=== PATIENT | male | born 1940 | race Caucasian/White ===

== ENCOUNTER 2020-08-10 18:28 | Inpatient (IN) | payer MEDICARE ==
[2020-08-10] MEDS ORDERED: NA CHLORIDE 0.9% 500 ML ONE (20:42)
[2020-08-10 20:45] LABS: Absolute Lymphocytes (CBC) 1.1 K/uL (0.7-4.9); Basophils % 0.6 % (0-1.3); Hematocrit 38.8 % (39.6-49.0); Lymphocytes % 8.6 % (15.3-44.8)
[2020-08-10 21:11] LABS: Bilirubin Direct 0.1 mg/dL (0-0.2); Bilirubin Total 0.4 mg/dL (0.2-1.0); Potassium 4.2 mmol/L (3.5-5.1)
[2020-08-10 23:24] LABS: Urine Blood Trace-intact (Negative); Urine Glucose Negative (Negative); Urine Protein Negative (Negative)
--- NOTE | 2020-08-10 23:24 | EDPHYS ---
Physician Documentation [facility] Name: Abiel Sanchez Age: 80 yrs Sex: Male : 1940 Arrival Date: 08/10/2020 Time: 18:32 Bed 17 Private MD: ED Physician Jimmy Peña HPI: 08/10 20:22 This 80 yrs old Male presents to ER via Ambulatory with complaints of mh7 Constipation. 20:22 The patient presents with Constipation. Onset: The symptoms/episode began/occurred 5 mh7 day(s) ago. The symptoms do not radiate. Associated signs and symptoms: Pertinent positives: constipation, Pertinent negatives: nausea, vomiting, and diarrhea, nausea and vomiting, anorexia, blood in stools, chest pain, diarrhea, dysuria, fever, headache, hematuria, nausea, palpitations, shortness of breath, testicular pain, vomiting, vomiting blood. The symptoms are described as constant. Modifying factors: The symptoms are alleviated by nothing, the symptoms are aggravated by nothing. Severity of pain: At its worst the pain was No Pain, in the emergency department the pain is unchanged. Historical: - Allergies: 19:06 No Known Allergies; em - PMHx: 19:06 Hypertension; cardiac arrythymias; em - PSHx: 19:06 "monitor near heart"; Hernia repair; em 19:07 bladder stents; em - Immunization history:: Adult Immunizations up to date. - Social history:: Smoking status: Patient denies any tobacco usage or history of. ROS: 20:22 Constitutional: Negative for fever, chills, and weight loss, Eyes: Negative for injury, mh7 pain, redness, and discharge, ENT: Negative for injury, pain, and discharge, Neck: Negative for injury, pain, and swelling, Cardiovascular: Negative for chest pain, palpitations, and edema, Respiratory: Negative for shortness of breath, cough, wheezing, and pleuritic chest pain, Back: Negative for injury and pain, : Negative for injury, bleeding, discharge, and swelling, MS/Extremity: Negative for injury and deformity, Skin: Negative for injury, rash, and discoloration, Neuro: Negative for headache, weakness, numbness, tingling, and seizure, Psych: Negative for depression, anxiety, suicide ideation, homicidal ideation, and hallucinations, Allergy/Immunology: Negative for hives, rash, and allergies, Endocrine: Negative for neck swelling, polydipsia, polyuria, polyphagia, and marked weight changes, Hematologic/Lymphatic: Negative for swollen nodes, abnormal bleeding, and unusual bruising. Exam: 20:22 Constitutional: This is a well developed, well nourished patient who is awake, alert, mh7 and in no acute distress. Head/Face: Normocephalic, atraumatic. Eyes: Pupils equal round and reactive to light, extra-ocular motions intact. Lids and lashes normal. Conjunctiva and sclera are non-icteric and not injected. Cornea within normal limits. Periorbital areas with no swelling, redness, or edema. Neck: Trachea midline, no thyromegaly or masses palpated, and no cervical lymphadenopathy. Supple, full range of motion without nuchal rigidity, or vertebral point tenderness. No Meningismus. Chest/axilla: Normal chest wall appearance and motion. Nontender with no deformity. No lesions are appreciated. Cardiovascular: Regular rate and rhythm with a normal S1 and S2. No gallops, murmurs, or rubs. Normal PMI, no JVD. No pulse deficits. Respiratory: Lungs have equal breath sounds bilaterally, clear to auscultation and percussion. No rales, rhonchi or wheezes noted. No increased work of breathing, no retractions or nasal flaring. 20:22 Back: No spinal tenderness. No costovertebral tenderness. Full range of motion. Skin: Warm, dry with normal turgor. Normal color with no rashes, no lesions, and no evidence of cellulitis. MS/ Extremity: Pulses equal, no cyanosis. Neurovascular intact. Full, normal range of motion. Neuro: Awake and alert, GCS 15, oriented to person, place, time, and situation. Cranial nerves II-XII grossly intact. Motor strength 5/5 in all extremities. Sensory grossly intact. Cerebellar exam normal. Normal gait. Psych: Awake, alert, with orientation to person, place and time. Behavior, mood, and affect are within normal limits. 20:22 Abdomen/GI: Inspection: obese Bowel sounds: normal, in all quadrants, Palpation: abdomen is soft and non-tender, in all quadrants, mass, is not appreciated, rebound tenderness, is not appreciated, voluntary guarding, is not appreciated, involuntary guarding, is not appreciated, no appreciated organomegaly, Indicators: McBurney's point is not tender, Tejada's sign is negative, Rovsing's sign is negative, Obturator sign is negative, Psoas sign is negative, Liver: no appreciated palpable abnormalities, Hernia: noted in the paraumbilical area, incarceration, is not appreciated, tenderness, is not appreciated. 20:22 Abdomen/GI: Rectal exam: Prostate: normal, rectal tone normal, Stool: brown, guaiac mh7 negative, hemorrhoid(s), are not appreciated, mass, is not appreciated, swelling, is not appreciated, tenderness, is not appreciated, fecal impaction, that is mild. Vital Signs: 19:00 BP 184 / 81; Pulse 103; Resp 20; Temp 98.0(O); Pulse Ox 98% on R/A; Weight 108.86 kg; em Height 6 ft. 3 in. (190.50 cm); Pain 0/10; 21:34 BP 150 / 68; Pulse 72; Resp 18; Pulse Ox 98% on R/A; ea 22:39 BP 156 / 73; Pulse 72; Resp 18; Pulse Ox 99% on R/A; ea 23:08 BP 166 / 74; Pulse 70; Resp 18; Pulse Ox 98% ; ea 08/11 01:30 BP 168 / 82; Pulse 80; Resp 18; Temp 98; Pulse Ox 98% ; ea 08/10 19:00 Body Mass Index 30.00 (108.86 kg, 190.50 cm) em MDM: 08/10 23:20 Differential diagnosis: bowel obstruction, Ureterolithiasis, urinary tract infection, mh7 Constipation. Data reviewed: vital signs, nurses notes, lab test result(s), CBC, electrolytes, urinalysis, radiologic studies, CT scan. Data interpreted: Pulse oximetry: on room air is 98 %. Interpretation: normal. Counseling: I had a detailed discussion with the patient and/or guardian regarding: the historical points, exam findings, and any diagnostic results supporting the discharge/admit diagnosis, the presence of at least one elevated blood pressure reading (>120/80) during this emergency department visit, lab results, radiology results, the need for further work-up and treatment in the hospital. Response to treatment: the patient's symptoms have mildly improved after treatment. Physician consultation: Tam Do MD regarding patient's condition, and will see patient in inpatient room, would like admission per Dr. Jordan Simon MD. 23:23 Patient medically screened. [facility] 08/10 20:01 Order name: Basic Metabolic Panel; Complete Time: 22:23 [facility] 08/10 20:01 Order name: CBC with Diff; Complete Time: 21:10 [facility] 08/10 20:01 Order name: Hepatic Function; Complete Time: 22:23 [facility] 08/10 20:01 Order name: Lipase; Complete Time: 22:23 [facility] 08/10 23:24 Order name: Urine Dipstick-Ancillary [facility] 08/10 20:01 Order name: IV Saline Lock; Complete Time: 21:01 [facility] 08/10 20:01 Order name: Labs collected and sent; Complete Time: 21:01 [facility] 08/10 20:02 Order name: CT Abd/Pelvis - PO and IV Contrast [facility] 08/11 00:23 Order name: CONS Physician Consult [facility] 08/11 00:52 Order name: SARS-COV-[address] [facility] 08/10 20:02 Order name: Urine Dipstick-Ancillary (obtain specimen); Complete Time: 23:38 7 Administered Medications: 20:38 Drug: NS 0.9% 500 ml Route: IV; Rate: bolus; Site: right antecubital; vg1 23:37 Follow up: Response: No adverse reaction; IV Status: Completed infusion; IV Intake: ea 500ml 23:35 Drug: LevaQUIN (levofloxacin) 500 mg Volume: 100 ml; Route: IVPB; Infused Over: 60 ea mins; Site: right antecubital; 23:37 Follow up: IV Status: Completed infusion ea 23:35 Drug: Flagyl (metroNIDAZOLE) 500 mg Volume: 100 ml; Route: IVPB; Rate: 200 ml/hr; ea Infused Over: 30 mins; Site: right antecubital; 23:37 Follow up: IV Status: Completed infusion ea Disposition: 08/10/20 23:23 Hospitalization ordered by Jordan Simon for Inpatient Admission. Preliminary diagnosis are Constipation, Stercoral Colitis. - Bed requested for Telemetry/MedSurg (Inpatient). - Status is Inpatient Admission. ea - Condition is Stable. - Problem is new. - Symptoms have improved. Signatures: Dispatcher [employer] EDMI Kumar Veras, RN RN Magalys Askew, RN RN Carolyn Christine, RN RN vg1 Jimmy Peña MD MD 7 David Quintanilla tt3 Corrections: (The following items were deleted from the chart) 08/11 00:01 08/10 23:50 CORONAVIRUS+.LALOZ ordered. [facility] 08/11 01:24 08/10 23:23 Hospitalization Ordered by Jordan Simon MD for Inpatient Admission. tt3 Preliminary diagnosis is Constipation; Stercoral Colitis. Bed requested for Telemetry/MedSurg (Inpatient). Status is Inpatient Admission. Condition is Stable. Problem is new. Symptoms have improved. 7 08/11 01:40 01:24 08/10/2020 23:23 Hospitalization Ordered by Jordan Simon MD for Inpatient ea Admission. Preliminary diagnosis is Constipation; Stercoral Colitis. Bed requested for Telemetry/MedSurg (Inpatient). Status is Inpatient Admission. Condition is Stable. Problem is new. Symptoms have improved. tt3
--- NOTE | 2020-08-10 23:24 | ER ---
Nurse's Notes [facility] Name: Abiel Sanchez Age: 80 yrs Sex: Male : 1940 Arrival Date: 08/10/2020 Time: 18:32 Bed 17 Private MD: Diagnosis: Constipation;Stercoral Colitis Presentation: 08/10 19:00 Chief complaint: Patient states: constipation for 4-5 days, has tried prune juice, em mineral oil, and fleet enema with not relief, denies N/V, fever or pain. Coronavirus screen: Client denies travel out of the [place] in the last 14 days. Ebola Screen: Patient negative for fever greater than or equal to 101.5 degrees Fahrenheit, and additional compatible Ebola Virus Disease symptoms Patient denies exposure to infectious person. Patient denies travel to an Ebola-affected area in the 21 days before illness onset. No symptoms or risks identified at this time. Initial Sepsis Screen: Does the patient meet any 2 criteria? HR > 90 bpm. No. Patient's initial sepsis screen is negative. Does the patient have a suspected source of infection? No. Patient's initial sepsis screen is negative. Risk Assessment: Do you want to hurt yourself or someone else? Patient reports no desire to harm self or others. Onset of symptoms was August 10, 2020. 19:00 Method Of Arrival: Ambulatory em 19:00 Acuity: BLACK 3 em Historical: - Allergies: 19:06 No Known Allergies; em - PMHx: 19:06 Hypertension; cardiac arrythymias; em - PSHx: 19:06 "monitor near heart"; Hernia repair; em 19:07 bladder stents; em - Immunization history:: Adult Immunizations up to date. - Social history:: Smoking status: Patient denies any tobacco usage or history of. Screenin:49 Abuse screen: Denies threats or abuse. Nutritional screening: No deficits noted. ea Tuberculosis screening: No symptoms or risk factors identified. Fall Risk None identified. Assessment: 20:00 General: Appears in no apparent distress. Behavior is calm, cooperative, appropriate ea for age. Pain: Complains of pain in paraumbilical area. Neuro: Level of Consciousness is awake, alert, obeys commands, Oriented to person, place, time. Cardiovascular: Patient's skin is warm and dry. Respiratory: Airway is patent Respiratory effort is even, unlabored, Respiratory pattern is regular, symmetrical. GI: Abdomen is round. Derm: Skin is pink, warm \\T\\ dry. 22:38 Reassessment: Patient and/or family updated on plan of care and expected duration. Pain ea level reassessed. Patient is alert, oriented x 3, equal unlabored respirations, skin warm/dry/pink. 08/11 01:38 Reassessment: Patient and/or family updated on plan of care and expected duration. Pain ea level reassessed. Patient is alert, oriented x 3, equal unlabored respirations, skin warm/dry/pink. Report given to receiving nurse on second floor. Pt left ED via wheelchair, tolerating well. No s/s of pain or discomfort noted at this time. Vital Signs: 08/10 19:00 BP 184 / 81; Pulse 103; Resp 20; Temp 98.0(O); Pulse Ox 98% on R/A; Weight 108.86 kg; em Height 6 ft. 3 in. (190.50 cm); Pain 0/10; 21:34 BP 150 / 68; Pulse 72; Resp 18; Pulse Ox 98% on R/A; ea 22:39 BP 156 / 73; Pulse 72; Resp 18; Pulse Ox 99% on R/A; ea 23:08 BP 166 / 74; Pulse 70; Resp 18; Pulse Ox 98% ; ea 08/11 01:30 BP 168 / 82; Pulse 80; Resp 18; Temp 98; Pulse Ox 98% ; ea 08/10 19:00 Body Mass Index 30.00 (108.86 kg, 190.50 cm) ED Course: 08/10 18:32 Patient arrived in ED. mr 19:02 Triage completed. em 19:06 Arm band placed on. em 19:38 Magalys Mullins, JHONATHAN is Primary Nurse. ea 19:44 Jimmy Peña MD is Attending Physician. [facility] 19:50 Patient has correct armband on for positive identification. Bed in low position. Call ea light in reach. Side rails up X 1. 20:16 Oral contrast given. sj 20:37 Initial lab(s) drawn, by me, sent to lab. Inserted saline lock: 20 gauge in right vg1 antecubital area, using aseptic technique. Blood collected. 22:21 CT Abd/Pelvis - PO and IV Contrast In Process Unspecified. EDMO 23:22 Jordan Simon MD is Hospitalizing Provider. [facility] 23:48 No provider procedures requiring assistance completed. Patient admitted, IV remains in ea place. Administered Medications: 20:38 Drug: NS 0.9% 500 ml Route: IV; Rate: bolus; Site: right antecubital; vg1 23:37 Follow up: Response: No adverse reaction; IV Status: Completed infusion; IV Intake: ea 500ml 23:35 Drug: LevaQUIN (levofloxacin) 500 mg Volume: 100 ml; Route: IVPB; Infused Over: 60 ea mins; Site: right antecubital; 23:37 Follow up: IV Status: Completed infusion ea 23:35 Drug: Flagyl (metroNIDAZOLE) 500 mg Volume: 100 ml; Route: IVPB; Rate: 200 ml/hr; ea Infused Over: 30 mins; Site: right antecubital; 23:37 Follow up: IV Status: Completed infusion ea Intake: 23:37 IV: 500ml; Total: 500ml. ea Outcome: 23:23 Decision to Hospitalize by Provider. [facility] 08/11 01:38 Admitted to Med/surg accompanied by tech, room 228, with chart, Report called to ea Receiving nurse Condition: stable Instructed on the need for admit, Demonstrated understanding of instructions. 01:40 Patient left the ED. ea Signatures: Dispatcher [employer] [facility] Beatriz Ziegler, Kumar Hair, RN Magalys Srinivasan, RN Carolyn Barney ea RN JHONATHAN 1 Jimmy Peña MD MD [facility]
[2020-08-10] MEDS ORDERED: METRONIDAZOLE 500mg IVPB 500 MG/100 ML BAG IV ONE (23:44)
[2020-08-10] MEDS ORDERED: Levofloxacin500mg IV 500 MG/100 ML BAG IV ONE (23:44)
--- NOTE | 2020-08-11 00:40 | P.HP ---
Certification for Inpatient Patient admitted to: Observation With expected LOS: <2 Midnights Patient will require the following post-hospital care: None Practitioner: I am a practitioner with admitting privileges, knowledge of patient current condition, hospital course, and medical plan of care. Services: Services provided to patient in accordance with Admission requirements found in Title 42 Section 412.3 of the Code of Federal Regulations Patient History Date of Service: 08/11/20 Reason for admission: constipation History of Present Illness: Mr. Sanchez is an 80 yo M with HTN, cardiac arrhythmia, BPH, LAURENCE on CPAP here today for constipation. He says yesterday morning he had his last BM. This morning he used prune juice, mineral oil, and a fleet enema and was not able to have a bowel movement. He reports abdominal discomfort. Denies pain, cramps, fever, nausea and vomiting. CT scan shows stercoral colitis. WBC 12.2, GFR 57. Urine dipstick trace blood, leukocyte esterase. - Past Medical/Surgical History Diabetic: No -: HTN -: LAURENCE on CPAP -: BPH -: arrhythmia -: retinal detachment -: bladder stones -: fractured back 2019 -: thoracentesis for fluid drainage -: Dupuytren's contracture -: umbilical hernia repair -: rectal fistulectomy Psychosocial/ Personal History: lives in [facility], here for vacation in [place] - Family History Mother -: Heart disease, Hypertension Father -: Cancer - Social History Smoking Status: Former smoker Alcohol use: No CD- Drugs: No Caffeine use: Yes Place of Residence: Home Review of Systems General: Unremarkable Eyes: Unremarkable ENT: Unremarkable Respiratory: Unremarkable Cardiovascular: Unremarkable Gastrointestinal: Constipation, As per HPI Genitourinary: Unremarkable Musculoskeletal: Unremarkable Integumentary: Unremarkable Neurological: Unremarkable Lymphatics: Unremarkable Physical Examination - Physical Exam General: Alert, In no apparent distress, Oriented x3, Cooperative HEENT: Atraumatic, Normocephalic, PERRLA, Mucous membr. moist/pink, EOMI, Sclerae nonicteric Neck: Supple, 2+ carotid pulse no bruit, JVD not distended, No Thyromegaly, No LAD Respiratory: Clear to auscultation bilaterally, Normal air movement Cardiovascular: No edema, Normal pulses, Regular rate/rhythm, No gallops, No rubs, No murmurs Gastrointestinal: Normal bowel sounds, Soft and benign, Non-distended, No ascites, No tenderness, No masses, No rebound, No guarding Musculoskeletal: No clubbing, No swelling, No contractures, No erythema, No tenderness, No warmth Integumentary: No rashes, No breakdown, No significant lesion, No tenderness/swelling, No erythema, No warmth, No cyanosis Neurological: Normal gait, Normal speech, Normal strength at 5/5 x4 extr, Normal tone, Sensation intact, Cranial nerves 3-12 intact, Normal affect Lymphatics: No axilla or inguinal lymphadenopathy - Studies Laboratory Data (last 24 hrs) 08/10/20 20:33: WBC 12.20 H, Hgb 12.9 L, Hct 38.8 L, Plt Count 201 08/10/20 20:33: Sodium 141, Potassium 4.2, BUN 17, Creatinine 1.23, Glucose 107 H, Total Bilirubin 0.4, AST 24, ALT 26, Alkaline Phosphatase 119 H, Lipase 73 Assessment and Plan - Problems (Diagnosis) (1) LAURENCE on CPAP Current Visit: Yes Status: Chronic (2) HTN (hypertension) Current Visit: Yes Status: Chronic Qualifiers: Hypertension type: essential hypertension Qualified Code(s): I10 - Essential (primary) hypertension (3) BPH (benign prostatic hyperplasia) Current Visit: Yes Status: Chronic Qualifiers: Lower urinary tract symptom presence: symptoms absent Qualified Code(s): N40.0 - Benign prostatic hyperplasia without lower urinary tract symptoms (4) Arrhythmia Current Visit: Yes Status: Chronic Qualifiers: Arrhythmia type: unspecified cardiac arrhythmia Qualified Code(s): I49.9 - Cardiac arrhythmia, unspecified (5) Colitis Current Visit: Yes Status: Acute - Plan Surgery consulted NPO, continue IVF and IV antibiotics IV hydralazine PRN for BP control reconcile home medications urinalysis pending on telemetry CPAP at bedtime Discharge Plan: Home Plan to discharge in: 24 Hours - Advance Directives Does patient have a Living Will: No Does patient have a Durable POA for Healthcare: No - Code Status/Comfort Care Code Status Assessed: Yes (full code) Critical Care: No Time Spent Managing Pts Care (In Minutes): 70
[2020-08-11] MEDS ORDERED: ACETAMINOPHEN 500 MG TAB PO PRN (01:59)
[2020-08-11] MEDS ORDERED: ONDANSETRON 4 MG/2 ML VIAL IV PRN (01:59)
[2020-08-11] MEDS ORDERED: NA CHLORIDE 0.9% 1,000 ML IV SCH (01:59)
[2020-08-11] MEDS ORDERED: HYDRALAZINE HCL 20 MG/ML VIAL IV PRN (01:59)
[2020-08-11] MEDS ORDERED: Levofloxacin 250mg IV 250 MG/50 ML BAG IV ONE (03:00)
[2020-08-11 03:31] VITALS: BMI 30.9
[2020-08-11 04:38] LABS: Urine Appearance CLOUDY (Clear); Urine Bilirubin NEGATIVE (Negative); Urine Blood 1+ (Negative); Urine Color YELLOW (Yellow); Urine Glucose NEGATIVE (Negative); Urine Protein NEGATIVE (Negative); Urine Specific Gravity 1.015 (1.005-1.030); Urine Urobilinogen 0.2 mg/dL (0.2-1.0); Urine pH 6.5 (5.0-7.0)
[2020-08-11 04:48] LABS: Urine Microscopic Reflex ORDER UMIC
[2020-08-11 04:51] LABS: Urine Bacteria 20-50 /HPF (NONE SEEN); Urine Mucus 1+ /HPF (NONE SEEN); Urine Yeast MANY (NONE SEEN)
[2020-08-11 06:27] LABS: Absolute Lymphocytes (CBC) 2.7 K/uL (0.7-4.9); Basophils % 0.4 % (0-1.3); Hematocrit 36.6 % (39.6-49.0); Lymphocytes % 23.3 % (15.3-44.8); MPV 9.7 fL (7.6-11.3); RBC Red Blood Cell Count 4.33 M/uL (4.33-5.43)
[2020-08-11 06:52] LABS: Albumin 3.3 g/dL (3.4-5.0); Bilirubin Total 0.4 mg/dL (0.2-1.0); Magnesium 2.3 mg/dL (1.8-2.4); Phosphorus 3.1 mg/dL (2.5-4.9); Thyroid Stimulating Hormone 1.61 uIU/mL (0.360-3.740)
[2020-08-11] MEDS ORDERED: METRONIDAZOLE 500mg IVPB 500 MG/100 ML BAG IV SCH (09:00)
[2020-08-11 11:17] VITALS: O2SAT 94
--- NOTE | 2020-08-11 11:57 | CON ---
Date of Consultation: 08/11/2020 Brief History Of Present Illness: The patient is an 80-year-old male with past medical history of hy pertension, cardiac arrhythmia, BPH, obstructive sleep apnea, on CPAP, here with constipation. He webber s had several episodes of constipation before in the past and has been able to resolve this generally with laxatives and enemas; however, on this particular occasion, he took some and did not have any s ignificant improvement. He said he had a feeling of fullness without pain, nausea, vomiting, or obst ructive complaints, no distention, no tenderness, but he was concerned about the feeling of fullness that he had and as such, he came to the emergency room with the above-stated complaints. Workup was performed including a CT scan of the abdomen and pelvis, which was officially read by the [facility] adiologist as moderate to large amount of fecal material in the rectum, mild rectal wall thickening a nd trace fat stranding suggestive of stercoral colitis, moderate amount of fecal material throughout the colon, mild left colonic diverticulosis with no evidence of acute diverticulitis partially imaged , heterogeneous medium size right-sided pleural effusion with adjacent pleural thickening correlate f or chronic inflammation versus infection, multiple small bladder calculi, moderate prostatomegaly. Past Medical History: As stated, significant for hypertension, LAURENCE, on CPAP, BPH, arrhythmia, retina l detachment, bladder stones, back fracture, Dupuytren contracture, umbilical hernia. Past Surgical History: Includes thoracentesis, umbilical hernia repair, rectal fistulotomy, back rep air. Family History: Significant for heart disease in his mother and hypertension and father had cancer. His mother also had a bowel obstruction. He lives in [facility], here on vacation at [place]. He is a fo rmer smoker. Denies alcohol or recreational drug use. Allergies: NO KNOWN DRUG ALLERGIES. Home Medications: Not available. Review of Systems: His 10-point review of systems other than HPI, denies. Physical Examination: Vital Signs: At the time of my examination; his vital signs were a blood pressure 140/60, heart rate was 59, respiratory rate 16, temperature 97.7. General: He is awake, alert, and oriented. Psychiatric: Appropriate. Conversive. HEENT: Normocephalic. His sclerae are anicteric. His mucosa membranes are moist. His oropharynx i s clear. Neck: Supple without JVD. Chest: Normal expansion and excursion. Cardiovascular: Regular rate and rhythm. Pulmonary: Clear to auscultation bilaterally. Abdomen: Soft, nontender, nondistended. No rebound. No guarding. No focal peritonitis. No palpab le masses. He does have a palpable periumbilical mesh with a well-healed surgical scar. Musculoskeletal: No clubbing, cyanosis, edema. Skin: Warm and dry. Laboratory Data: Revealed a white blood cell count of 11.5, hemoglobin , hematocrit 36.6, platelet count is 210. His neutrophils are 64%. His sodium is 142, potassium 4.0, chloride 109, car bon dioxide 27, BUN 15, creatinine 1.07. His glucose is 94. His phosphorus is 3.1, magnesium 2.3, t otal bilirubin 0.4, AST 20, ALT 23, alkaline phosphatase 110. His lipase is 73 on admission. His UA showed 3+ leukocyte esterase, white blood cells too numerous to count, bacteria 20/50, yeast many. His SARS/COVID RNA was negative. He had the imaging which included a CT scan of the abdomen and pelv is officially read by the [facility] radiologist as moderate to large amount of fecal material in the rectum with mild rectal wall thickening and trace surrounding fat stranding suggestive of stercoral c olitis, moderate amount of fecal material throughout the colon, mild left colonic diverticulosis with no evidence acute diverticulitis, partially imaged heterogeneous medium small size right pleural eff usion with adjacent pleural thickening correlate for chronic inflammation versus infection, consider follow up to exclude malignancy, multiple small bladder calculi, moderate prostatomegaly. Assessment And Plan: This is an 80-year-old male, who came in with fecal retention and constipation. 1.He had last colonoscopy 6 months ago. He states there were no acute findings on that particular s tudy. 2.Start clear liquid diet and advance as tolerated. If the patient is able to tolerate, can be disc harged home from a surgical standpoint with instructions to follow up with his primary care doctor to review his CAT scan findings and schedule additional imaging in the future should that be necessary. 3.I have discussed fiber supplementation should the patient have need for ongoing treatment; however , I have discussed that he should review this with his director industrial nursing and/or primary care doctor prior to initiation. The patient has no surgical intervention at this time. I have explained the ri sks, benefits, and alternatives of the above stated plan. The patient agrees to proceed as indicated . Thank you for this interesting consult. JUAN Voice ID: [id number] Report ID: [id number]
[2020-08-11 14:25] VITALS: BP 170/74; TEMP 99.1
[2020-08-12] MEDS ORDERED: Levofloxacin 750mg IV 750 MG/150 ML BAG IV SCH
--- NOTE | 2020-08-12 18:20 | RAD REPORT ---
EXAM DESCRIPTION: Abdomen Pelvis W Contrast RadLex: CT ABDOMEN PELVIS WITH IV CONTRAST CLINICAL HISTORY: CONSTIPATION. COMPARISON: None. TECHNIQUE: CT of the abdomen and pelvis was performed following intravenous administration of iodina starr contrast. Arterial phase images through the abdomen, and portal venous phase images through the a bdomen and pelvis were obtained. Oral contrast was not administered. Axial, coronal, and sagittal sof t tissue window reconstructions were created and sent to PACS. This exam was performed according to our departmental dose-optimization program, which includes autom ated exposure control, adjustment of the mA and/or kV according to patient size and/or use of iterati ve reconstruction technique. FINDINGS: Thoracic: Partially imaged medium sized right-sided pleural effusion, with adjacent pleura l thickening. Heterogeneity of the pleural effusion with a possible septation. Minimal adjacent atele ctasis or scarring. Hepatobiliary: Mild hepatomegaly, measuring 19.2 cm in length. No concerning hepatic lesion identifie d. The hepatic and portal veins are patent. The gallbladder is unremarkable. No biliary ductal dilata tion. Pancreas: Unremarkable. Spleen: Unremarkable. Gastrointestinal: There is a moderate to large amount of fecal material in the rectum, with mild rect al wall thickening and trace surrounding fat stranding. Moderate amount of fecal material throughout the colon. Mild left colonic diverticulosis. I density material in the colon and distal small bowel l oops could reflect oral contrast. No evidence of bowel obstruction. The appendix is normal. Adrenals: No abnormality identified in either adrenal gland. Renal: Bilateral simple renal cysts. No concerning parenchymal abnormality in either kidney. No hydro nephrosis or urolithiasis. Bladder/Reproductive: No bladder wall thickening or surrounding inflammatory changes. There are calci fications layering dependently along the posterior bladder wall, measuring up to 1 cm in size. Modera te prostatomegaly. Vascular/Lymphatics: No lymphadenopathy identified by CT size criteria. The major visceral vessels ar e patent. Mild calcific atherosclerosis. Abdominal aorta is normal in caliber. Musculoskeletal: No concerning osseous lesion identified. Osteopenia. Spinal scoliosis and spondylosi s. Fluid / peritoneum: No significant free fluid. No free intraperitoneal air identified. IMPRESSION 1. Moderate to large amount of fecal material in the rectum, with mild rectal wall thic kening and trace surrounding fat stranding, suggestive of stercoral colitis. 2. Moderate amount of fecal material throughout the colon. Mild left colonic diverticulosis with no evidence of acute diverticulitis. 3. Partially imaged heterogeneous medium sized right-sided pleural effusion, with adjacent pleural thickening. Correlate for chronic inflammation versus infection. Comparison with any outside prior im aging would be helpful. Consider follow-up imaging to exclude malignancy. 4. Multiple small bladder calculi. Moderate prostatomegaly.. Electronically signed by: Kendy Yip MD 08/10/2020 10:43 PM CDT Due to temporary technical issues with the PACS/Fluency reporting system, reports are being signed by the in house radiologists without review as a courtesy to insure prompt reporting. The interpreting radiologist is fully responsible for the content of the report.
--- NOTE | 2020-08-13 02:53 | P.DS ---
Discharge Date: 08/11/20 Disposition: ROUTINE DISCHARGE Discharge Condition: GOOD Reason for Admission: constipation Brief History of Present Illness: Mr. Sanchez is an 80 yo M with HTN, cardiac arrhythmia, BPH, LAURENCE on CPAP here today for constipation. He says yesterday morning he had his last BM. This morning he used prune juice, mineral oil, and a fleet enema and was not able to have a bowel movement. He reports abdominal discomfort. Denies pain, cramps, fever, nausea and vomiting. CT scan shows stercoral colitis. WBC 12.2, GFR 57. Urine dipstick trace blood, leukocyte esterase. Hospital Course: Patient was treated with antibiotics. Patient had a large bowel movement felt much better. At this time, patient is doing much better and is stable for discharge. He will follow up as an outpatient with Gastroenterology for colonoscopy. Vital Signs/Physical Exam: Temp Pulse Resp BP Pulse Ox 99.1 F 64 16 170/74 H 98 08/11/20 12:00 08/11/20 12:00 08/11/20 12:00 08/11/20 12:00 08/11/20 12:00 General: Alert, In no apparent distress, Oriented x3 Laboratory Data at Discharge: WBC 11.50 K/uL (4.3-10.9) H 08/11/20 05:35 Hgb 12.2 g/dL (13.6-17.9) L 08/11/20 05:35 Hct 36.6 % (39.6-49.0) L 08/11/20 05:35 Plt Count 210 K/uL (152-406) 08/11/20 05:35 Sodium 142 mmol/L (136-145) 08/11/20 05:35 Potassium 4.0 mmol/L (3.5-5.1) 08/11/20 05:35 BUN 15 mg/dL (7-18) 08/11/20 05:35 Creatinine 1.07 mg/dL (0.55-1.3) 08/11/20 05:35 Glucose 94 mg/dL (74-106) 08/11/20 05:35 Phosphorus 3.1 mg/dL (2.5-4.9) 08/11/20 05:35 Magnesium 2.3 mg/dL (1.8-2.4) 08/11/20 05:35 Total Bilirubin 0.4 mg/dL (0.2-1.0) 08/11/20 05:35 AST 20 U/L (15-37) 08/11/20 05:35 ALT 23 U/L (12-78) 08/11/20 05:35 Alkaline Phosphatase 110 U/L (45-117) 08/11/20 05:35 Triglycerides 72 mg/dL (<150) 08/11/20 05:35 Cholesterol 141 mg/dL (<200) 08/11/20 05:35 HDL Cholesterol 47 mg/dL (40-60) 08/11/20 05:35 Cholesterol/HDL Ratio 3.00 08/11/20 05:35 Lipase 73 U/L (73-393) 08/10/20 20:33 Home Medications: Docusate [Colace Cap] 100 mg PO BID #30 cap 08/11/20 Levofloxacin [Levaquin] 500 mg PO DAILY #7 tablet 08/11/20 metroNIDAZOLE [Flagyl] 500 mg PO Q8H #21 tablet 08/11/20 New Medications: Docusate [Colace Cap] 100 mg PO BID #30 cap metroNIDAZOLE [Flagyl] 500 mg PO Q8H #21 tablet Levofloxacin [Levaquin] 500 mg PO DAILY #7 tablet Physician Discharge Instructions: PROBLEM: Colitis GOAL: Clear understanding of disease process INSTRUCTIONS: Diet: heart healthy Activity: Fall precautions OK TO DC IV AND DC HOME FOLLOW-UP WITH PRIMARY CARE PROVIDER IN 1-2 WEEKS FOLLOW-UP WITH GI IN 1-2 WEEKS RETURN TO THE ER IF symptoms worsens CALL or TEXT DR. SINGH AT [phone] IF ANY QUESTIONS REGARDING HOSPITAL STAY. PLEASE CALL THE FLOOR AT [phone] IF ANY MEDICATION OR NURSING QUESTIONS. Diet: AHA Activity: Fall precautions Followup: OOT,OOT [Primary Care Provider] - Marvel Stark MD [ASSOCIATE-ACTIVE - CAN ADMIT] - Time spent managing pt's care (in minutes): 35
== END 2020-08-11 16:41 | disposition home or self-care (01) | DRG 392 ==
LOC: ER 18:28 → ERHOLD 08-11 00:57 → 2ND 08-11 01:25
PROVIDERS: ADMIT Hospitalist; ATTEND Hospitalist
DX: K52.89 Other specified noninfective gastroenteritis and colitis (principal); G47.33 Obstructive sleep apnea (adult) (pediatric); I10 Essential (primary) hypertension; K59.00 Constipation, unspecified; I49.9 Cardiac arrhythmia, unspecified; N40.0 Benign prostatic hyperplasia without lower urinary tract symptoms; Z87.891 Personal history of nicotine dependence; Z79.899 Other long term (current) drug therapy; Z99.89 Dependence on other enabling machines and devices; Z20.822 Contact with and (suspected) exposure to COVID-19
CPT/HCPCS: 36415; 74177; 80048; 80053; 80061; 80076; 81003; 81015; 83690; 83735; 84100; 84439; 84443; 85025; 87077; 87086; 87088; 87186; 94760; 96361; 96374; 96375; 99285; J7030; J7040; Q9967; U0003